=== PATIENT | female | born 1985 | race Hispanic/Latino ===

== ENCOUNTER 2022-06-16 18:49 | Emergency (ER) | payer BC, SELFPAY ==
[2022-06-16] MEDS ORDERED: Fluorescein Opthalmic Strip ONE (21:09)
[2022-06-16] MEDS ORDERED: Proparacaine 0.5% Opth 15 ML BOT ONE (21:09)
[2022-06-16] MEDS ORDERED: Acetaminophen 500 MG TAB ONE (22:02)
[2022-06-16] MEDS ORDERED: Ibuprofen 800 MG TAB ONE (22:02)
== END 2022-06-16 22:06 | disposition home or self-care (01) ==
LOC: ERS 18:49
DX: H10.9 Unspecified conjunctivitis (principal)
CPT/HCPCS: 99283